=== PATIENT | male | born 1970 | race Caucasian/White ===

== ENCOUNTER 2019-05-29 18:54 | Emergency (ER) | payer OTHER ==
[~2019-05-29] VITALS: Ht 182 cm; Wt 100.0 kg
[2019-05-29 19:45] LABS: BASOPHILS % (AUTO) 0 % (0-10); EOSINOPHILS % (AUTO) 1 % (0-10); HEMATOCRIT 41 % (40-54); HEMOGLOBIN 13.8 G/DL (13.3-17.7); LYMPHOCYTES # (AUTO) 2.7 X 10^3 (1.0-4.0); LYMPHOCYTES % (AUTO) 37 % (12-44); MEAN CORPUSCULAR HEMOGLOBIN 30 PG (25-34); MEAN CORPUSCULAR HGB CONC 34 G/DL (32-36); MEAN CORPUSCULAR VOLUME 87 FL (80-99); MEAN PLATELET VOLUME 11.3 FL (7.4-10.4); MONOCYTES # (AUTO) 0.5 X 10^3 (0.0-1.0); MONOCYTES % (AUTO) 8 % (0-12); NEUTROPHILS # (AUTO) 3.9 X 10^3 (1.8-7.8); NEUTROPHILS % (AUTO) 54 % (42-75); PLATELET COUNT 157 10^3/uL (130-400); RED CELL DISTRIBUTION WIDTH 13.9 % (10.0-14.5); WHITE BLOOD COUNT 7.1 10^3/uL (4.3-11.0)
[2019-05-29 19:55] VITALS: BP_SYST 128; BP_SYST 142; BP_SYST 146; BP_DIAS 100; BP_DIAS 89; BP_DIAS 96
[2019-05-29] MEDS ORDERED: LACTATED RINGERS 1,000 ML IV ONE ×2 (19:59→20:01)
[2019-05-29 20:07] LABS: BILIRUBIN,URINE NEGATIVE (NEGATIVE); CLARITY,URINE CLEAR; COLOR,URINE YELLOW; GLUCOSE, URINE (UA) NEGATIVE (NEGATIVE); KETONES,URINE NEGATIVE (NEGATIVE); LEUKOCYTE ESTERASE ,URINE NEGATIVE (NEGATIVE); NITRITE,URINE NEGATIVE (NEGATIVE); PROTEIN,URINE NEGATIVE (NEGATIVE)
--- NOTE | 2019-05-29 20:07 | ED General ---
General Chief Complaint: Altered Mental Status Stated Complaint: TIREDNESS, CONFUSION, SLURRED SPEECH Nursing Triage Note: Pt ambulates to RM 10 with at bedside. Pt speech is slurred and slowly responding so speaking for pt. Pt states pt has had "extreme physical exertion 3/5-37 and has been overly sleeping since. Speech has been slurred, been shaky, and having disturbances during sleep". Pt does appear lethargic and slow to respond to questions during triage. Pt states no new changes in lifestyle besides quitting drinking in Jan 2019. Nursing Sepsis Screen: No Definite Risk Source of Information: Patient, Family Exam Limitations: No Limitations History of Present Illness Date Seen by Provider: May 29, 2019 Time Seen by Provider: 19:32 Initial Comments Patient resents ER by private conveyance with his and chief complaint that he has been feeling out of it, tired sleeping a lot and having restless sleep for the past couple days. 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 When he came home he was just exhausted and slept all Tuesday. His thought on Tuesday that he had some left-sided facial droop and slurring speech but he was just tired and wanted to stay in bed and refused to come the ER at that time. He has no history of stroke, coronary disease heart attacks. He does not take any blood thinners. He is not having any other neurologic symptoms since then. His says that when he sleeps is very restless grunts and he flails about. She says this is very unusual for him. 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 He doesn't feel that he was doing anything particularly strenuous but he was doing some heavy lifting. He has no history of kidney disease, dysrhythmia of the heart, diabetes. He says he does not feel himself. He says it feels different from when he was suffering from heat exhaustion. He does take several medications including prazosin, [facility] He does not follow with a director engineering for any reason. Allergies and Home Medications Allergies Coded Allergies: No Known Drug Allergies (Unverified , 05/29/19) Patient Home Medication List Home Medication List Reviewed: Yes Review of Systems Review of Systems Constitutional: No chills, No diaphoresis EENTM: No ear discharge, No ear pain Respiratory: No cough, No short of breath Cardiovascular: No chest pain, No edema, No Hx of Intervention, No palpitation s, No syncope, No vascular heart diseas Gastrointestinal: No abdominal pain, No constipation, No diarrhea, No nausea, No vomiting Genitourinary: No discharge, No dysuria Musculoskeletal: No back pain, No joint pain Psychiatric/Neurological: Denies Anxiety; Depressed, Emotional Problems All Other Systems Reviewed Negative Unless Noted: Yes Past Toljzer-Qjmuqn-Oycxfp Hx Patient Social History Alcohol Use: Denies Use Recreational Drug Use: No Smoking Status: Never a Smoker 2nd Hand Smoke Exposure: No Recent Foreign Travel: No Contact w/Someone Who Travel: No Recent Infectious Disease Expo: No Recent Hopitalizations: No Seasonal Allergies Seasonal Allergies: No Past Medical History Surgeries: No Respiratory: No Cardiac: Yes High Cholesterol Neurological: No Genitourinary: No Gastrointestinal: Yes Gastroesophageal Reflux Musculoskeletal: No Endocrine: No HEENT: No Cancer: No Psychosocial: Yes Depression Integumentary: No Blood Disorders: No Physical Exam Vital Signs Vital Signs - First Documented 05/29/19 19:17 Temp 37.0 Pulse 72 Resp 20 B/P (MAP) 147/99 (115) Pulse Ox 97 O2 Delivery Room Air Capillary Refill : Less Than 3 Seconds Height, Weight, BMI Height: '" Weight: lbs. oz. kg; 30.00 BMI Method: General Appearance: No Apparent Distress, WD/WN, Other Eyes: Bilateral Eye Normal Inspection, Bilateral Eye PERRL, Bilateral Eye EOMI HEENT: PERRL/EOMI, TMs Normal, Normal ENT Inspection; No Moist Mucous Membranes (oropharynx is very dry with cracked lips) Neck: Full Range of Motion, Normal Inspection, Non Tender, Supple Respiratory: Lungs Clear, Normal Breath Sounds, No Accessory Muscle Use, No Respiratory Distress Cardiovascular: Regular Rate, Rhythm, No Edema, Normal Peripheral Pulses Gastrointestinal: Normal Bowel Sounds, No Organomegaly, Non Tender, Soft Extremity: Normal Capillary Refill, Normal Inspection, Non Tender, No Pedal Edema Neurologic/Psychiatric: Alert, Oriented x3, school examiner II-XII Norm as Tested; No Facial Droop; Other (flat affect) Skin: Normal Color, Warm/Dry Progress/Results/Core Measures Suspected Sepsis Recent Fever Within 48 Hours: No Infection Criteria Present: None New/Unexplained Altered Menta: No Sepsis Screen: No Definite Risk SIRS Temperature: Pulse: 72 Respiratory Rate: 20 Laboratory Tests 05/29/19 19:37: White Blood Count 7.1 Blood Pressure 147 /99 Mean: 115 Laboratory Tests 05/29/19 19:37: Creatinine 0.91, Platelet Count 157, Total Bilirubin 0.5 Results/Orders Lab Results Laboratory Tests Test 05/29/19 19:37 05/29/19 20:00 Range/Units White Blood Count 7.1 4.3-11.0 10^3/uL Red Blood Count 4.68 4.35-5.85 10^6/uL Hemoglobin 13.8 13.3-17.7 G/DL Hematocrit 41 40-54 % Mean Corpuscular Volume 87 80-99 FL Mean Corpuscular Hemoglobin 30 25-34 PG Mean Corpuscular Hemoglobin Concent 34 32-36 G/DL Red Cell Distribution Width 13.9 10.0-14.5 % Platelet Count 157 130-400 10^3/uL Mean Platelet Volume 11.3 H 7.4-10.4 FL Neutrophils (%) (Auto) 54 42-75 % Lymphocytes (%) (Auto) 37 12-44 % Monocytes (%) (Auto) 8 0-12 % Eosinophils (%) (Auto) 1 0-10 % Basophils (%) (Auto) 0 0-10 % Neutrophils # (Auto) 3.9 1.8-7.8 X 10^3 Lymphocytes # (Auto) 2.7 1.0-4.0 X 10^3 Monocytes # (Auto) 0.5 0.0-1.0 X 10^3 Eosinophils # (Auto) 0.0 0.0-0.3 10^3/uL Basophils # (Auto) 0.0 0.0-0.1 10^3/uL Sodium Level 140 135-145 MMOL/L Potassium Level 3.9 3.6-5.0 MMOL/L Chloride Level 103 98-107 MMOL/L Carbon Dioxide Level 25 21-32 MMOL/L Anion Gap 12 5-14 MMOL/L Blood Urea Nitrogen 15 7-18 MG/DL Creatinine 0.91 0.60-1.30 MG/DL Estimat Glomerular Filtration Rate > 60 BUN/Creatinine Ratio 16 Glucose Level 98 70-105 MG/DL Calcium Level 9.3 8.5-10.1 MG/DL Corrected Calcium 8.9 8.5-10.1 MG/DL Total Bilirubin 0.5 0.1-1.0 MG/DL Aspartate Amino Transf (AST/SGOT) 25 5-34 U/L Alanine Aminotransferase (ALT/SGPT) 24 0-55 U/L Alkaline Phosphatase 71 40-136 U/L Total Creatine Kinase 158 30-200 U/L Troponin I < 0.028 <0.028 NG/ML C-Reactive Protein High Sensitivity 0.86 H 0.00-0.50 MG/DL Total Protein 7.3 6.4-8.2 GM/DL Albumin 4.5 3.2-4.5 GM/DL Serum Alcohol < 10 <10 MG/DL Urine Color YELLOW Urine Clarity CLEAR Urine pH 6.0 5-9 Urine Specific [place] 1.020 1.016-1.022 Urine Protein NEGATIVE NEGATIVE Urine Glucose (UA) NEGATIVE NEGATIVE Urine Ketones NEGATIVE NEGATIVE Urine Nitrite NEGATIVE NEGATIVE Urine Bilirubin NEGATIVE NEGATIVE Urine Urobilinogen 0.2 < = 1.0 MG/DL Urine Leukocyte Esterase NEGATIVE NEGATIVE Urine RBC (Auto) TRACE-I NEGATIVE Urine RBC NONE /HPF Urine WBC NONE /HPF Urine Crystals NONE /LPF Urine Bacteria TRACE /HPF Urine Casts NONE /LPF Urine Mucus NEGATIVE /LPF Urine Culture Indicated NO Urine Opiates Screen NEGATIVE NEGATIVE Urine Oxycodone Screen NEGATIVE NEGATIVE Urine Methadone Screen NEGATIVE NEGATIVE Urine Propoxyphene Screen NEGATIVE NEGATIVE Urine Barbiturates Screen NEGATIVE NEGATIVE Ur Tricyclic Antidepressants Screen POSITIVE H NEGATIVE Urine Phencyclidine Screen NEGATIVE NEGATIVE Urine Amphetamines Screen NEGATIVE NEGATIVE Urine Methamphetamines Screen NEGATIVE NEGATIVE Urine Benzodiazepines Screen NEGATIVE NEGATIVE Urine Cocaine Screen NEGATIVE NEGATIVE Urine Cannabinoids Screen NEGATIVE NEGATIVE Micro Results Microbiology 05/29/19 Influenza Types A,B Antigen (ISSA) - Final, Complete My Orders Orders - RALPH MORRIS Cbc With Automated Diff (05/29/19 19:32) Comprehensive Metabolic Panel (05/29/19 19:32) Hs C Reactive Protein (05/29/19 19:32) Creatine Kinase (05/29/19 19:32) Ed Iv/Invasive Line Start (05/29/19 19:32) Ua Culture If Indicated (05/29/19 19:32) Drug Screen Stat (Urine) (05/29/19 19:32) Alcohol (05/29/19 19:32) Influenza A And B Antigens (05/29/19 19:32) Orthostatic Vital Signs (Adult (05/29/19 19:32) Ct Head Wo (05/29/19 19:59) Ed Iv/Invasive Line Start (05/29/19 19:59) Lactated Ringers (Lr 1000 Ml Iv Solution (05/29/19 19:59) Ed Iv/Invasive Line Start (05/29/19 20:01) Lactated Ringers (Lr 1000 Ml Iv Solution (05/29/19 20:01) Ekg Tracing (05/29/19 20:09) Continuous Ekg Monitoring (05/29/19 20:09) Troponin I (05/29/19:09) Medications Given in ED Current Medications Medications Dose Ordered Sig/Claudia Route Start Time Stop Time Status Last Admin Dose Admin Lactated Ringer's 1,000 ml @ 0 mls/hr Q0M ONCE IV 05/29/19 19:59 05/29/19 20:02 DC 05/29/19 20:12 0 MLS/HR Lactated Ringer's 1,000 ml @ 0 mls/hr Q0M ONCE IV 05/29/19 20:01 05/29/19 20:02 DC 05/29/19 20:12 0 MLS/HR Vital Signs/I&O 05/29/19 19:17 Temp 37.0 Pulse 72 Resp 20 B/P (MAP) 147/99 (115) Pulse Ox 97 O2 Delivery Room Air Capillary Refill : Less Than 3 Seconds Blood Pressure Mean: 115 Progress Note #1: Time: 20:08 Progress Note Patient appears clinically dry but his orthostatics are normal. Suspect exhaustion could be the source of his symptoms. Given a couple liters of fluid as he does appear dry. Check some labs including a CPK, CRP looking for signs of inflammation, rhabdomyolysis etc. Plan to get an EKG and a CT of his head. Dubious whether his drooping facial symptoms were related to exhaustion versus TIA versus other? Progress Note #2: Time: 21:19 Progress Note Patient states he doesn't feel much different now however he does appear a little more director drug his mouth is now moist and he is able to answer questions a little better. He is gotten up and used the bathroom to urinate twice now. His urine initially is concentrated on the urinalysis. No evidence of infection or inflammation. CT is unremarkable. Plan to have him follow-up with primary care for exhaustion delirium as necessary. We'll also make referral to cardiology as he has questions about risk stratification for his cardiac risk. ECG Initial ECG Impression Date: May 29, 2019 Initial ECG Impression Time: 20:32 Initial ECG Rate: 60 Initial ECG Rhythm: Normal Sinus Initial ECG Intervals: Normal Initial ECG Impression: Normal Initial ECG Comparisson: No Previous ECG Available Comment Normal sinus rhythm without ST elevation or depression. Diagnostic Imaging Diagonstic Imaging: CT (without IV contrast) Plain Films/CT/US/NM/MRI: head Comments NAME: JAMARCUS CHILEL MED REC#: [id number] PT STATUS: REG ER : 1970 PHYSICIAN: RALPH MORRIS MD ADMIT DATE: 05/29/19/ER Signed Date of Exam:05/29/19 CT HEAD WO PROCEDURE: CT head without contrast. TECHNIQUE: Multiple contiguous axial images were obtained through the brain without the use of intravenous contrast. Auto Exposure Controls were utilized during the CT exam to meet ALARA standards for radiation dose reduction. INDICATION: Tiredness, confusion, blurred vision and dizziness. FINDINGS: Noncontrast CT scan of the head demonstrates no mass effect, midline shift, hemorrhage or extra-axial fluid collections. Polacno-white matter differentiation is normal. The ventricles, cortical sulci and basilar cisterns are normal. Osseous structures are normal. IMPRESSION: Normal CT scan of the head. Dictated by: Dictated on workstation # [id number] Dict: 05/29/192047 Trans: 05/29/192054 [facility] [id number] Interpreted by: SHO STODDARD MD Electronically signed by: SHO STODDARD MD 05/29/192054 Reviewed: Reviewed by Me Departure Impression Primary Impression: Exhaustion delirium Disposition: 01 HOME, SELF-CARE Condition: Stable Departure-Patient Inst. Decision time for Depature: 21:19 Referrals: NO,LOCAL PHYSICIAN (PCP) Primary Care Physician MELODY AGARWAL MD FACP FAC CCDS Patient Instructions: Delirium (Confusion) (DC), Heat Exhaustion and Heat Stroke (DC) Add. Discharge Instructions: I don't have a handout the directly deals with exhaustion and the delirium associated with it however there is a handout on heat exhaustion which should be fairly similar to your situation without the addition of heat. I suspect that you have overdone it and caused a little delirium probably related to the medications are on and being dehydrated. I would encourage you for the next day or 2 to take it easy, get plenty of sleep and push lots of fluids. Expect this does not last more than a week. If it progresses longer than that or has other worrisome symptoms then you should follow-up with your primary care doctor. If you start to have chest pain shortness of breath, confusion or other sudden changes, slurred speech, facial droop etc. then please return to the nearest ER for further evaluation. You may follow-up with your primary care doctor or with Dr. Agarwal, director engineering to discuss risk stratification for heart disease, dysrhythmias etc. If he would like to hold her prazosin and amitriptyline for the next 2-3 days that would be acceptable. All discharge instructions reviewed with patient and/or family. Voiced understanding. Copy Copies To 1: MELODY AGARWAL MD FACP FACC CCDS RALPH MORRIS May 29, 2019 20:07
[2019-05-29 20:11] LABS: ALANINE AMINOTRANSFERASE 24 U/L (0-55); ALBUMIN 4.5 GM/DL (3.2-4.5); ALKALINE PHOSPHATASE 71 U/L (40-136); BILIRUBIN,TOTAL 0.5 MG/DL (0.1-1.0); BUN/CREATININE RATIO 16; CALCIUM 9.3 MG/DL (8.5-10.1); CARBON DIOXIDE 25 MMOL/L (21-32); CHLORIDE 103 MMOL/L (98-107); CREATINE KINASE 158 U/L (30-200); CREATININE SERUM 0.91 MG/DL (0.60-1.30); GFR ESTIMATED > 60; GLUCOSE 98 MG/DL (70-105); POTASSIUM 3.9 MMOL/L (3.6-5.0); SODIUM 140 MMOL/L (135-145); TOTAL PROTEIN 7.3 GM/DL (6.4-8.2)
[2019-05-29 20:28] LABS: BACTERIA,URINE TRACE /HPF
[2019-05-29 20:36] LABS: AMPHETAMINE SCREEN, URINE NEGATIVE (NEGATIVE); BARBITURATE SCREEN URINE NEGATIVE (NEGATIVE); BENZODIAZEPINES SCREEN URINE NEGATIVE (NEGATIVE); CANNABINOID SCREEN, URINE NEGATIVE (NEGATIVE); COCAINE SCREEN URINE NEGATIVE (NEGATIVE); METHADONE STAT NEGATIVE (NEGATIVE); METHAMPHETAMINE SCREEN URINE S NEGATIVE (NEGATIVE); OPIATE SCREEN URINE NEGATIVE (NEGATIVE); OXYCODONE STAT NEGATIVE (NEGATIVE); PROPOXYPHENE STAT NEGATIVE (NEGATIVE); TRICYCLIC ANTIDEPRESSANTS SCRE POSITIVE (NEGATIVE)
--- NOTE | 2019-05-29 20:50 | Diagnostic Imaging Report ---
PROCEDURE: CT head without contrast. TECHNIQUE: Multiple contiguous axial images were obtained through the brain without the use of intravenous contrast. Auto Exposure Controls were utilized during the CT exam to meet ALARA standards for radiation dose reduction. INDICATION: Tiredness, confusion, blurred vision and dizziness. FINDINGS: Noncontrast CT scan of the head demonstrates no mass effect, midline shift, hemorrhage or extra-axial fluid collections. Polanco-white matter differentiation is normal. The ventricles, cortical sulci and basilar cisterns are normal. Osseous structures are normal. IMPRESSION: Normal CT scan of the head. Dictated by: Dictated on workstation # [id number]
[2019-05-29 21:41] VITALS: BP 138/97
--- OUTSIDE RECORDS SUMMARY | 2019-05-31 22:17 | XMS REPORT | Continuity of Care Document ---
Author Organization Unknown Address Unknown Phone Unavailable Allergies Active Description Code Type Severity Reaction Onset Reported/Identified Relationship to Patient Clinical Status Yes No Known Drug Allergies [id number] Drug Allergy Unknown N/A 05/29/2019 Medications There is no data. Problems There is no data. Procedures There is no data. Results Test Result Range Complete blood count (CBC) with automate d white blood cell (WBC) differential - 05/29/19 19:37 Blood leukocytes automated count (number/volume) 7.1 10*3/uL 4.3-11.0 Blood erythrocytes automated count (number/volume) 4.68 10*6/uL 4.35-5.85 Venous blood hemoglobin measurement (mass/volume) 13.8 g/dL 13.3-17.7 Blood hematocrit (volume fraction) 41 % 40-54 Automated erythrocyte mean corpuscular volume 87 [ foz_us] 80-99 Automated erythrocyte mean corpuscular h emoglobin (mass per erythrocyte) 30 pg 25-34 Automated erythrocyte mean corpuscular h emoglobin concentration measurement (mass/volume) 34 g/dL 32-36 Automated erythrocyte distribution width ratio 13. 9 % 10.0- 14.5 Automated blood platelet count (count/volume) 157 10*3/uL 130-400 Automated blood platelet mean volume measurement 11.3 [foz_us] 7.4-10.4 Automated blood neutrophils/100 leukocytes 54 % 42-75 Automated blood lymphocytes/100 leukocytes 37 % 12-44 Blood monocytes/100 leukocytes 8 % 0-12 Automated blood eosinophils/100 leukocytes 1 % 0-10 Automated blood basophils/100 leukocytes 0 % 0-10 Blood neutrophils automated count (number/volume) 3.9 10*3 1.8-7.8 Blood lymphocytes automated count (number/volume) 2.7 10*3 1.0-4.0 Blood monocytes automated count (number/volume) 0. 5 10*3 0.0-1.0 Automated eosinophil count 0.0 10*3/uL 0 .0-0.3 Automated blood basophil count (count/volume) 0.0 10*3/uL 0.0-0.1 Comprehensive metabolic panel - 05/29/19 19:37 Serum or plasma sodium measurement (moles/volume) 140 mmol/L 135-145 Serum or plasma potassium measurement (moles/volume) 3.9 mmol/L 3.6-5.0 Serum or plasma chloride measurement (moles/volume) 103 mmol/L 98-107 Carbon dioxide 25 mmol/L 21-32 Serum or plasma anion gap determination (moles/volume) 12 mmol/L 5-14 Serum or plasma urea nitrogen measurement (mass/volume ) 15 mg/dL 7-18 Serum or plasma creatinine measurement (mass/volume) 0.91 mg/dL 0.60-1.30 Serum or plasma urea nitrogen/creatinine mass ratio 16 NRG Serum or plasma creatinine measurement w ith calculation of estimated glomerular filtration rate > NRG Serum or plasma glucose measurement (mass/volume) 98 mg/dL 70-105 Serum or plasma calcium measurement (mass/volume) 9.3 mg/dL 8.5-10.1 Serum or plasma total bilirubin measurement (mass/volu me) 0.5 mg/dL 0.1-1.0 Serum or plasma alkaline phosphatase addison surement (enzymatic activity/volume) 71 U/L 40-136 Serum or plasma aspartate aminotransfera se measurement (enzymatic activity/volume) 25 U/L 5-34 Serum or plasma alanine aminotransferase measurement (enzymatic activity/volume) 24 U/L 0-55 Serum or plasma protein measurement (mass/volume) 7.3 g/dL 6.4-8.2 Serum or plasma albumin measurement (mass/volume) 4.5 g/dL 3.2-4.5 CALCIUM CORRECTED 8.9 mg/dL 8.5-10.1 Serum or plasma creatine kinase measurem ent (enzymatic activity/volume) - 05/29/19 19:37 Serum or plasma creatine kinase measurem ent (enzymatic activity/volume) 158 U/L 30-200 Serum or plasma C reactive protein measu rement (mass/volume) - 05/29/19 19:37 Serum or plasma C reactive protein measurement (mass/v olume) 0.86 mg/dL 0.00-0.50 Serum or plasma ethanol measurement (mas s/volume) - 05/29/19 19:37 Serum or plasma ethanol measurement (mass/volume) < mg/dL <10 Serum or plasma troponin i.cardiac measu rement (mass/volume) - 05/29/19 19:37 Serum or plasma troponin i.cardiac measurement (mass/v olume) < ng/mL <0.028 Influenza virus A and B antigen detectio n - 05/29/19 19:56 FLU RESULT NEGATIVE FOR INFLUENZA A AND B ANTIGENS BY IA NRG Complete urinalysis with reflex to cultu re - 05/29/19 20:00 Urine color determination YELLOW NRG Urine clarity determination CLEAR NR G Urine pH measurement by test strip 6.0 5-9 Specific gravity of urine by test strip 1.020 1.016-1.022 Urine protein assay by test strip, semi-quantitative NEGATIVE NEGATIVE Urine glucose detection by automated test strip NE GATIVE NEGATIVE Erythrocytes detection in urine sediment by light micr oscopy TRACE-I NEGATIVE Urine ketones detection by automated test strip NE GATIVE NEGATIVE Urine nitrite detection by test strip NEGATIVE NEGATIVE Urine total bilirubin detection by test strip NEGA TIVE NEGATIVE Urine urobilinogen measurement by automated test strip (mass/volume) 0.2 mg/dL < = 1.0 Urine leukocyte esterase detection by dipstick NEG ATIVE NEGATIVE Automated urine sediment erythrocyte cou nt by microscopy (number/high power field) NONE NRG Automated urine sediment leukocyte count by microscopy (number/high power field) NONE NRG Bacteria detection in urine sediment by light microsco py TRACE NRG Crystals detection in urine sediment by light microsco py NONE NRG Casts detection in urine sediment by light microscopy NONE NRG Mucus detection in urine sediment by light microscopy NEGATIVE NRG Complete urinalysis with reflex to culture NO NRG Urine drug screening test - 05/29/19 20: 00 Urine phencyclidine detection by screening method NEGATIVE NEGATIVE Urine benzodiazepines detection by screening method NEGATIVE NEGATIVE Urine cocaine detection NEGATIVE NEGATI VE Urine amphetamines detection by screening method N EGATIVE NEGATIVE Urine methamphetamine detection by screening method NEGATIVE NEGATIVE Urine cannabinoids detection by screening method N EGATIVE NEGATIVE Urine opiates detection by screening method NEGATI VE NEGATIVE Urine barbiturates detection NEGATIVE N EGATIVE Screening urine tricyclic antidepressants detection POSITIVE NEGATIVE Urine methadone detection by screening method NEGA TIVE NEGATIVE Urine oxycodone detection NEGATIVE NEGA TIVE Urine propoxyphene detection NEGATIVE N EGATIVE Encounters ACCT No. Visit Date/Time Discharge Status Pt. Type Provider Facility Loc./Unit Complaint [id number] 02/04/2019 11:00:00 02/04/2019 23:59: 59 CLS Out[facility] [id number] 05/29/2019 18:58:00 020 21:45:00 DIS Emergency ARTURO CUBA, RALPH Jj [facility] ER TIREDNESS, CONFUSION, S LURRED SPEECH
== END 2019-05-29 21:45 | disposition home or self-care (01) ==
LOC: ER 18:58
DX: F43.0 Acute stress reaction (principal); F43.10 Post-traumatic stress disorder, unspecified; F32.9 Major depressive disorder, single episode, unspecified
CPT/HCPCS: 36415; 70450; 80053; 80306; 80320; 81000; 82550; 84484; 85025; 86141; 87804; 93005

== ENCOUNTER 2019-07-29 14:24 | Emergency (ER) | payer OTHER ==
[~2019-07-29] VITALS: Ht 182.8 cm; Wt 100.7 kg
--- OUTSIDE RECORDS SUMMARY | 2019-07-29 14:31 | XMS REPORT | Continuity of Care Document ---
Author Organization Unknown Address Unknown Phone Unavailable Allergies Active Description Code Type Severity Reaction Onset Reported/Identified Relationship to Patient Clinical Status Yes No Known Drug Allergies [id number] Drug Allergy Unknown N/A 05/29/2019 Medications There is no data. Problems Date Dx Coded Attending Type Code Diagnosis Diagnosed By 05/29/2019 ARTURO CUBA, RALPH Jj Ot F32. 9 MAJOR DEPRESSIVE DISORDER, SINGLE EPISOD 05/29/2019 ARTURO CUBA, RALPH Jj Ot F43. 0 ACUTE STRESS REACTION 05/29/2019 ARTURO CUBA, RALPH Jj Ot F43. 10 POST-TRAUMATIC STRESS DISORDER, UNSPECIF 05/29/2019 ARTRUO CUBA, RALPH Jj Ot R41. 0 DISORIENTATION, UNSPECIFIED 06/06/2019 ARTURO CUBA, RALPH Jj Ot F32. 9 MAJOR DEPRESSIVE DISORDER, SINGLE EPISOD 06/06/2019 ARTURO CUBA, RALPH Jj Ot F43. 0 ACUTE STRESS REACTION 06/06/2019 ARTURO CUBA, RALPH Jj Ot F43. 10 POST-TRAUMATIC STRESS DISORDER, UNSPECIF 06/06/2019 ARTURO CUBA, RALPH Jj Ot R41. 0 DISORIENTATION, UNSPECIFIED Procedures There is no data. Results Test [...] Status Pt. Type Provider Facility Loc./Unit Complaint [id number] 02/04/2019 11:00:00 02/04/2019 23:59: 59 [facility] Outpatient [facility]IN [facility] [id number] 05/29/2019 18:58:00 020 21:45:00 DIS Emergency ARTURO CUBA, RALPH Jj [facility] ER TIREDNESS, CONFUSION, S LURRED SPEECH
--- NOTE | 2019-07-29 14:39 | ED Chest Pain ---
General Chief Complaint: Chest Wall Stated Complaint: RT SIDE RIB PAIN History of Present Illness Date Seen by Provider: July 29, 2019 Time Seen by Provider: 14:20 Initial Comments Yesterday patient fell off the deck landing on his right side and arm has some abrasions to the right arm but good range of motion and no tenderness but the right-sided ribs hurt more today especially with a deep breath cough or sneeze. No fever no chills no hemoptysis has not broken ribs before. Timing/Duration: 24 hours Severity/Quality: moderate Radiation: no radiation Activities at Onset: activity Modifying Factors: improves with breathing, improves with coughing, improves with movement Allergies and Home Medications Allergies Coded Allergies: No Known Drug Allergies (Unverified , 05/29/19) Patient Home Medication List Home Medication List Reviewed: Yes Review of Systems Review of Systems Constitutional: No chills, No fever Respiratory: Other (pain is noted with a deep breath) Cardiovascular: Chest Pain; Denies Irregular Heart Rate, Denies Palpitations Gastrointestinal: Denies Nausea, Denies Vomiting Skin: other (abrasions right arm) Psychiatric/Neurological: Denies Headache, Denies Numbness, Denies Paresthesia Past [place]-Axvngj-[place] Hx Past Med/Social Hx: Reviewed Nursing Past Med/Soc Hx Patient Social History 2nd Hand Smoke Exposure: No Recent Foreign Travel: No Contact w/Someone Who Travel: No Recent Hopitalizations: No Seasonal Allergies Seasonal Allergies: No Past Medical History Surgeries: No Respiratory: No Cardiac: Yes High Cholesterol Neurological: No Genitourinary: No Gastrointestinal: Yes Gastroesophageal Reflux Musculoskeletal: No Endocrine: No HEENT: No Cancer: No Psychosocial: Yes Depression Integumentary: No Blood Disorders: No Physical Exam Vital Signs Vital Signs - First Documented 07/29/19 14:30 Temp 37.7 Pulse 101 Resp 16 B/P (MAP) 136/73 (94) Pulse Ox 96 O2 Delivery Room Air Capillary Refill : Height, Weight, BMI Height: '" Weight: lbs. oz. kg; 30.00 BMI Method: General Appearance: No Apparent Distress, WD/WN HEENT: PERRL/EOMI Respiratory: Other (tenderness along the right rib margin midaxillary line proximally rib 6 and 7 splinting is noted no true crepitus is noted no wheezing but decreased breath sounds are noted.) Cardiovascular: Regular Rate, Rhythm, No Murmur Extremity: Other (mild abrasion to right arm some swelling but good range of motion strength and muscular function) Neurologic/Psychiatric: Alert, Oriented x3 Skin: Normal Color, Warm/Dry Progress/Results/Core Measures Results/Orders My Orders Orders - GENOVEVA TIERNEY JR, MD Ribs 2-3 View Right (07/29/19 14:35) Hydrocodone/Apap 5/325 Tablet (Lortab 5 (07/29/19 15:30) Rx-Hydrocodone/Apap 5-325 Mg (Rx-Vicodin (07/29/19 15:30) Medications Given in ED Current Medications Medications Dose Ordered Sig/Claudia Route Start Time Stop Time Status Last Admin Dose Admin Acetaminophen/ Hydrocodone Bitart 1 ea Q4H PRN PO 07/29/19 15:30 07/29/19 15:30 1 EA Acetaminophen/ Hydrocodone Bitart 1 tab ONCE ONCE PO 07/29/19 15:30 07/29/19 15:31 DC 07/29/19 15:30 1 TAB Vital Signs/I&O 07/29/19 14:30 Temp 37.7 Pulse 101 Resp 16 B/P (MAP) 136/73 (94) Pulse Ox 96 O2 Delivery Room Air Departure Impression Primary Impression: Chest wall contusion Qualified Codes: S20.211A - Contusion of right front wall of thorax, initial encounter Disposition: HOME, SELF-CARE Condition: Stable Departure-Patient Inst. Referrals: NO,LOCAL PHYSICIAN (PCP/Family) Primary Care Physician Patient Instructions: Rib Fracture (DC) Add. Discharge Instructions: follow up with pcp if problems All discharge instructions reviewed with patient and/or family. Voiced understanding. GENOVEVA TIERNEY JR, MD July 29, 2019 14:39
[2019-07-29] MEDS ORDERED: HYDROcodone/APAP 5 MG/325 MG (LORTAB) TAB PO ONE (15:30)
[2019-07-29] MEDS ORDERED: RX-HYDROCODONE/APAP 5/325 MG #4 TAB PK PO PRN (15:30)
--- NOTE | 2019-07-29 15:35 | Diagnostic Imaging Report ---
INDICATION: Fall, right-sided rib pain. TECHNIQUE: Four views of the right ribs, 2:47 PM. CORRELATION STUDY: None. FINDINGS: No acute displaced right-sided rib fracture. The right lung is clear without infiltrate, effusion or pneumothorax. IMPRESSION: Negative for acute displaced right-sided rib fracture. Dictated by: Dictated on workstation # [id number]
[2019-07-29 15:40] VITALS: BP 136/73
== END 2019-07-29 15:39 | disposition home or self-care (01) ==
LOC: EDUNIT# 14:24 → ER FS 14:27
DX: S20.211A Contusion of right front wall of thorax, initial encounter (principal); S40.811A Abrasion of right upper arm, initial encounter; W17.89XA Other fall from one level to another, initial encounter
CPT/HCPCS: 71100

== ENCOUNTER 2021-09-12 00:09 | Emergency (ER) | payer OTHER ==
[~2021-09-12] VITALS: Ht 182.8 cm; Wt 106.5 kg
--- NOTE | 2021-09-12 00:17 | ED Chest Pain ---
General Stated Complaint: MEDICAL CLEARANCE Source: patient, police Exam Limitations: no limitations History of Present Illness Date Seen by Provider: Sep 12, 2021 Time Seen by Provider: 00:11 Initial Comments 51-year-old male with past medical history of alcohol use disorder brought in by police after he was pulled over driving and blood alcohol level on breathalyzer was around 300. Per their policy they bring the patient in for clearance when it is high. Patient says that he drinks every day, start drinking at 8 AM yesterday, and it is a typical amount of alcohol for him. He denies any symptoms at this time. Allergies and Home Medications Allergies Coded Allergies: No Known Drug Allergies (Unverified , 05/29/19) Patient Home Medication List Home Medication List Reviewed: Yes Review of Systems Review of Systems Constitutional: No fever EENTM: No Blurred Vision Respiratory: Denies Cough Cardiovascular: No Symptoms Reported Gastrointestinal: No Symptoms Reported Genitourinary: No Symptoms Reported Musculoskeletal: no symptoms reported Skin: no symptoms reported Psychiatric/Neurological: No Symptoms Reported Endocrine: No Symptoms Reported Hematologic/Lymphatic: No Symptoms Reported All Other Systems Reviewed Negative Unless Noted: Yes Past Dlnvkpe-Nehthh-Mrqsmw Hx Patient Social History Alcohol Use?: Yes Alcohol type: Beer, Hard Liquor Immunizations Up To Date Tetanus Booster (TDap): Unknown Seasonal Allergies Seasonal Allergies: No Past Medical History Surgeries: No Respiratory: No Cardiac: Yes High Cholesterol Neurological: No Genitourinary: No Gastrointestinal: Yes Gastroesophageal Reflux Musculoskeletal: No Endocrine: No HEENT: No Cancer: No Psychosocial: Yes Sleep Difficulties, PTSD, Depression Integumentary: No Blood Disorders: No Physical Exam Vital Signs Vital Signs - First Documented 09/12/21 00:15 Temp 36.4 Pulse 104 Resp 17 B/P (MAP) 135/87 (103) Pulse Ox 94 O2 Delivery Room Air Capillary Refill : Height, Weight, BMI Height: '" Weight: lbs. oz. kg; 30.00 BMI Method: General Appearance: No Apparent Distress, WD/WN HEENT: PERRL/EOMI, Normal ENT Inspection, Pharynx Normal Neck: Full Range of Motion, Normal Inspection, Non Tender, Supple Respiratory: Chest Non Tender, Lungs Clear, Normal Breath Sounds, No Accessory Muscle Use, No Respiratory Distress Cardiovascular: Regular Rate, Rhythm, No Edema, Normal Peripheral Pulses Gastrointestinal: Normal Bowel Sounds, Non Tender, Soft; No Distended, No Guarding Extremity: Normal Capillary Refill, Normal Inspection, Normal Range of Motion, Non Tender, No Calf Tenderness, No Pedal Edema Neurologic/Psychiatric: Alert, Oriented x3, No Motor/Sensory Deficits, Normal Mood/Affect, bottom buffer II-XII Norm as Tested, Other (Not slurred but very coherent speech, normal gait) Skin: Normal Color, Warm/Dry Lymphatic: No Adenopathy Progress/Results/Core Measures Results/Orders Vital Signs/I&O 09/12/21 00:15 Temp 36.4 Pulse 104 Resp 17 B/P (MAP) 135/87 (103) Pulse Ox 94 O2 Delivery Room Air Progress Progress Note : Progress Note 51-year-old male brought in for clearance to go to skilled nursing. ABCs were intact and vitals were stable presentation. Physical exam with some slurred speech with him being obviously intoxicated, but he is very functional, normal gait, very coherent, alert and oriented, tolerating p.o. He drank a typical amount for him, and he says this would be an everyday occurrence. From an emergency department standpoint, he has no complaints. I believe he is safe to go to bed in skilled nursing and be monitored. He was then sent there with strict return precautions. Departure Impression Primary Impression: Alcohol intoxication Qualified Codes: F10.920 - Alcohol use, unspecified with intoxication, uncomplicated Disposition: [address]/LAW ENFORCE Condition: Stable Departure-Patient Inst. Decision time for Depature: 00:27 Referrals: NO,LOCAL PHYSICIAN (PCP/Family) Primary Care Physician Patient Instructions: Alcohol Use Disorder ED Add. Discharge Instructions: Please follow-up with your regular doctor if you have any concerns. If you do drink every day, and you stop drinking all of a sudden you are at risk for alcohol withdrawal. If you feel like you are withdrawing from alcohol please come back to the ER. EFRAIN CHAKRABORTY MD Sep 12, 2021 00:17
[2021-09-12 00:30] VITALS: BP 135/87
== END 2021-09-12 00:30 ==
LOC: EDUNIT# 00:09 → ER FS 00:12
DX: F10.129 Alcohol abuse with intoxication, unspecified (principal)
CPT/HCPCS: 99281